=== PATIENT | male | born 1935 | race Caucasian/White ===

== ENCOUNTER 2017-07-08 17:04 | Inpatient (IN) ==
[2017-07-08] MEDS ORDERED: NS 1,000 ML IV ONE ×2 (17:17→19:47)
[2017-07-08] MEDS ORDERED: MORPHINE SULFATE 4mg INJECTION IVP ONE ×2 (17:17→20:28)
[2017-07-08] MEDS: SALINE FLUSH 10ml SYRINGE IVF PRN ×2 (17:25→22:53)
--- OUTSIDE RECORDS SUMMARY | 2017-07-08 17:28 | External Medical Summary | CCD ---
:1935 Author Name ROHIT MONTANO Address [address], [place] [phone] Care Team Providers Name Role Phone LESTER BROWN Attending Physician Unavailable Vital Signs Unknown or Not Available. Allergies Unknown or Not Available. Procedures Unknown or Not Available. History of Immunizations Unknown or Not Available. Problems Unknown or Not Available. Results BASIC METABOLIC - Collect Date/Time: 05/06/2014 13:30 Test Name Code Test Result Test Units Test Ref Range GLUCOSE 105 mg/dL L=70 H=110 BUN 17 mg/dL L=7 H=18 CREATININE 1.60 mg/dL L=0.60 H=1.30 AGE 78 YEARS GFR 44.7 SODIUM 139 mmol/L L=136 H=145 POTASSIUM 4.0 mmol/L L=3.5 H=5.1 CHLORIDE 97 mmol/L L=98 H=107 CO2 32 mmol/L L=21 H=32 CALCIUM 5.9 mg/dL L=8.5 H=10.1 PT/INR - Collect Date/Time: 05/06/2014 13:30 Test Name Code Test Result Test Units Test Ref Range PT 22.8 Secs L=9.6 H=11.2 INR 2.12 L=0.00 H=4.00 Active Medications Unknown or Not Available. Medications Administered During Visit Unknown or Not Available. Encounters Unknown or Not Available. Social History Smoking Status Code Start Date End Date Never smoker [id number] Patient Decision Aids Unknown or Not Available. Discharge Instructions You were admitted to [facility] on 05/06/2014. You were discharged from [facility] on 05/06/2014. Should you have any questions prior to discharge, please contact a member of your healthcare team. If you have left the hospital and have any questions, please contact your primary care physician. Chief Complaint and Reason For Visit Unknown or Not Available. Function Status Unknown or Not Available. Plan of Care Unknown or Not Available. Referral/Transition of Care Unknown or Not Available.
--- OUTSIDE RECORDS SUMMARY | 2017-07-08 17:28 | External Medical Summary | CCD ---
:1935 Author Name MO HAN Address [address], [place] [phone] Care Team Providers Name Role Phone LESTER BROWN Attending Physician Unavailable Vital Signs Unknown or Not Available. Allergies Unknown or Not Available. Procedures Unknown or Not Available. History of Immunizations Unknown or Not Available. Problems Unknown or Not Available. Results PT/INR - Collect Date/Time: 12/28/2015 14:23 Test Name Code Test Result Test Units Test Ref Range PT 27.9 Secs L=9.4 H=11.0 INR 2.80 L=0.00 H=4.00 Active Medications Unknown or Not Available. Medications Administered During Visit Unknown or Not Available. Encounters Encounter Diagnosis Diagnosis Code Start Date Unspecified atrial fibrillation I4891 12/28/2015 Social History Smoking Status Code Start Date End Date Never smoker [id number] Patient Decision Aids Unknown or Not Available. Discharge Instructions You were admitted to [facility] on 12/28/2015 14:11 with a principal diagnosis of Unspecified atrial fibrillation You had the following tests done: PT/ INR You were discharged from [facility] on 12/28/2015 14:11 Should you have any questions prior to discharge, please contact a member of your healthcare team. If you have left the hospital and have any questions, please contact your primary care physician. Chief Complaint and Reason For Visit Chief Complaint Date of Onset LAB Function Status Unknown or Not Available. Plan of Care Unknown or Not Available. Referral/Transition of Care Unknown or Not Available.
--- OUTSIDE RECORDS SUMMARY | 2017-07-08 17:28 | External Medical Summary | CCD ---
:1935 Author Name ROHIT MONTANO Fernando Address [address] [place], [place] [phone] Care Team Providers Name Role Phone ERICH CELESTE Attending Physician Unavailable Vital Signs Unknown or Not Available. Allergies Unknown or Not Available. Procedures Unknown or Not Available. History of Immunizations Unknown or Not Available. Problems Unknown or Not Available. Results Unknown or Not Available. Active Medications Unknown or Not Available. Medications Administered During Visit Unknown or Not Available. Encounters Encounter Diagnosis Diagnosis Code Start Date CHRONIC KIDNEY DISEASE STAGE 5853 06/27/2014 III Social History Smoking Status Code Start Date End Date Never smoker [id number] Patient Decision Aids Unknown or Not Available. Discharge Instructions You were admitted to [facility] on with a principal diagnosis of CHRONIC KIDNEY DISEASE STAGE III. You were discharged from [facility] on 06/27/2014. Should you have any questions prior to discharge, please contact a member of your healthcare team. If you have left the hospital and have any questions, please contact your primary care physician. Chief Complaint and Reason For Visit Chief Complaint Date of Onset US RETRO PERITONEAL COMP Function Status Unknown or Not Available. Plan of Care Unknown or Not Available. Referral/Transition of Care Unknown or Not Available.
--- OUTSIDE RECORDS SUMMARY | 2017-07-08 17:28 | External Medical Summary | CCD ---
:1935 Author Name MO HAN Address [address] [place] [place], [place] [phone] Care Team Providers Name Role Phone LESTER BROWN Attending Physician Unavailable MICHAEL REBOLLAR (Secondary) Physician Unavailable Vital Signs Unknown or Not Available. Allergies Unknown or Not Available. Procedures Unknown or Not Available. History of Immunizations Unknown or Not Available. Problems Unknown or Not Available. Results PT/INR - Collect Date/Time: 10/06/2015 15:22 Test Name Code Test Result Test Units Test Ref Range PT 17.1 Secs L=9.4 H=11.0 INR 1.70 L=0.00 H=4.00 Active Medications Unknown or Not Available. Medications Administered During Visit Unknown or Not Available. Encounters Encounter Diagnosis Diagnosis Code Start Date Unspecified atrial fibrillation I4891 10/06/2015 Social History Smoking Status Code Start Date End Date Never smoker [id number] Patient Decision Aids Unknown or Not Available. Discharge Instructions You were admitted to [facility] on 10/06/2015 15:15 with a principal diagnosis of Unspecified atrial fibrillation You had the following tests done: PT/ INR You were discharged from [facility] on 10/06/2015 15:15 Should you have any questions prior to [...]
--- OUTSIDE RECORDS SUMMARY | 2017-07-08 17:28 | External Medical Summary | CCD ---
:1935 Author Name MO HAN Address [address] [place], [place] [phone] Care Team Providers Name Role Phone LESTER BROWN Attending Physician Unavailable MICHAEL REBOLLAR (Secondary) Physician Unavailable Vital Signs Unknown or Not Available. Allergies Unknown or Not Available. Procedures Unknown or Not Available. History of Immunizations Unknown or Not Available. Problems Unknown or Not Available. Results PT/INR - Collect Date/Time: 11/08/2015 14:58 Test Name Code Test Result Test Units Test Ref Range PT 26.9 Secs L=9.4 H=11.0 INR 2.69 L=0.00 H=4.00 Active Medications Unknown or Not Available. Medications Administered During Visit Unknown or Not Available. Encounters Encounter Diagnosis Diagnosis Code Start Date Unspecified atrial fibrillation I4891 11/08/2015 Social History Smoking Status Code Start Date End Date Never smoker [id number] Patient Decision Aids Unknown or Not Available. Discharge Instructions You were admitted to [facility] on 11/08/2015 14:54 with a principal diagnosis of Unspecified atrial fibrillation You had the following tests done: PT/ INR You were discharged from [facility] on 11/08/2015 14:54 Should you have any questions prior to [...]
--- OUTSIDE RECORDS SUMMARY | 2017-07-08 17:28 | External Medical Summary | CCD ---
:1935 Author Name MO HAN Address [address] [place], [place] [phone] Care Team Providers Name Role Phone LESTER BROWN Attending Physician Unavailable MICHAEL REBOLLAR (Secondary) Physician Unavailable Vital Signs Unknown or Not Available. Allergies Unknown or Not Available. Procedures Unknown or Not Available. History of Immunizations Unknown or Not Available. Problems Unknown or Not Available. Results BASIC METABOLIC - Collect Date/Time: 12/16/2014 11:15 Test Name Code Test Result Test Units Test Ref Range GLUCOSE 109 mg/dL L=70 H=110 BUN 14 mg/dL L=7 H=18 CREATININE 1.40 mg/dL L=0.60 H=1.30 AGE 79 YEARS GFR 52.0 SODIUM 133 mmol/L L=136 H=145 POTASSIUM 4.6 mmol/L L=3.5 H=5.1 CHLORIDE 99 mmol/L L=98 H=107 CO2 29 mmol/L L=21 H=32 CALCIUM 8.8 mg/dL L=8.5 H=10.1 MAGNESIUM - Collect Date/Time: 12/16/2014 11:15 Test Name Code Test Result Test Units Test Ref Range MAGNESIUM 1.8 mg/dL L=1.8 H=2.4 Active Medications Unknown or Not Available. Medications Administered During Visit Unknown or Not Available. Encounters Encounter Diagnosis Diagnosis Code Start Date Essential (primary) hypertension I10 12/16/2014 Social History Smoking Status Code Start Date End Date Never smoker [id number] Patient Decision Aids Unknown or Not Available. Discharge Instructions You were admitted to [facility] on 07/2014 with a principal diagnosis of Essential (primary) hypertension. Should you have any questions prior to [...]
--- OUTSIDE RECORDS SUMMARY | 2017-07-08 17:28 | External Medical Summary | CCD ---
:1935 Author Name HANMO NICHOLS Address [address] [place], [place] [phone] Care Team Providers Name Role Phone LESTER BROWN Attending Physician Unavailable Vital Signs Unknown or Not Available. Allergies Unknown or Not Available. Procedures Unknown or Not Available. History of Immunizations Unknown or Not Available. Problems Unknown or Not Available. Results BASIC METABOLIC - Collect Date/Time: 10/20/2014 11:16 Test Name Code Test Result Test Units Test Ref Range GLUCOSE 142 mg/dL L=70 H=110 BUN 17 mg/dL L=7 H=18 CREATININE 1.60 mg/dL L=0.60 H=1.30 AGE 78 YEARS GFR 44.7 SODIUM 136 mmol/L L=136 H=145 POTASSIUM 4.2 mmol/L L=3.5 H=5.1 CHLORIDE 99 mmol/L L=98 H=107 CO2 32 mmol/L L=21 H=32 CALCIUM 9.0 mg/dL L=8.5 H=10.1 MAGNESIUM - Collect Date/Time: 10/20/2014 11:16 Test Name Code Test Result Test Units Test Ref Range MAGNESIUM 2.0 mg/dL L=1.8 H=2.4 PT/INR - Collect Date/Time: 10/20/2014 11:16 Test Name Code Test Result Test Units Test Ref Range PT 26.5 Secs L=9.2 H=10.8 INR 2.50 L=0.00 H=4.00 Active Medications Unknown or Not Available. Medications Administered During Visit Unknown or Not Available. Encounters Encounter Diagnosis Diagnosis Code Start Date RENAL FAILURE NOS 586 10/20/2014 Social History Smoking Status Code Start Date End Date Never smoker [id number] Patient Decision Aids Unknown or Not Available. Discharge Instructions You were admitted to [facility] on 11/2014 with a principal diagnosis of RENAL FAILURE NOS. You were discharged from [facility] on 10/20/2014. Should you have any questions prior to [...]
--- OUTSIDE RECORDS SUMMARY | 2017-07-08 17:29 | External Medical Summary | CCD ---
:1935 Author Name ROHIT MONTANO Address [address] [place], [place] [phone] Care Team Providers Name Role Phone MICHAEL REBOLLAR Attending Physician Unavailable LESTER BROWNing (Secondary) Physician Unavailable Vital Signs Unknown or Not Available. Allergies Unknown or Not Available. Procedures Unknown or Not Available. History of Immunizations Unknown or Not Available. Problems Unknown or Not Available. Results BASIC METABOLIC - Collect Date/Time: 06/17/2014 11:08 Test Name Code Test Result Test Units Test Ref Range GLUCOSE 113 mg/dL L=70 H=110 BUN 12 mg/dL L=7 H=18 CREATININE 1.50 mg/dL L=0.60 H=1.30 AGE 78 YEARS GFR 48.1 SODIUM 134 mmol/L L=136 H=145 POTASSIUM 5.0 mmol/L L=3.5 H=5.1 CHLORIDE 99 mmol/L L=98 H=107 CO2 27 mmol/L L=21 H=32 CALCIUM 8.8 mg/dL L=8.5 H=10.1 Active Medications Unknown or Not Available. Medications Administered During Visit Unknown or Not Available. Encounters Unknown or Not Available. Social History Smoking Status Code Start Date End Date Never smoker [id number] Patient Decision Aids Unknown or Not Available. Discharge Instructions You were admitted to [facility] on 06/17/2014. Should you have any questions prior to [...]
--- OUTSIDE RECORDS SUMMARY | 2017-07-08 17:29 | External Medical Summary | CCD ---
:1935 Author Name MO HAN Address [address] [place], [place] [phone] Care Team Providers Name Role Phone LESTER BROWN Attending Physician Unavailable MICHAEL REBOLLAR (Secondary) Physician Unavailable Vital Signs Unknown or Not Available. Allergies Unknown or Not Available. Procedures Unknown or Not Available. History of Immunizations Unknown or Not Available. Problems Unknown or Not Available. Results PT/INR - Collect Date/Time: 04/04/2016 14:21 Test Name Code Test Result Test Units Test Ref Range PT 17.7 Secs L=9.4 H=11.0 INR 1.76 L=0.00 H=4.00 Active Medications Unknown or Not Available. Medications Administered During Visit Unknown or Not Available. Encounters Encounter Diagnosis Diagnosis Code Start Date Unspecified atrial fibrillation I4891 04/04/2016 Social History Smoking Status Code Start Date End Date Never smoker [id number] Patient Decision Aids Unknown or Not Available. Discharge Instructions You were admitted to [facility] on 04/04/2016 14:07 with a principal diagnosis of Unspecified atrial fibrillation You had the following tests done: PT/ INR You were discharged from [facility] on 04/09/2016 23:59 Should you have any questions prior to discharge, please contact a member of your healthcare team. If you have left the hospital and have any questions, please contact your primary care physician. Chief Complaint and Reason For Visit Chief Complaint Date of Onset LABS Function Status Unknown or Not Available. Plan of Care Unknown or Not Available. Referral/Transition of Care Unknown or Not Available.
--- OUTSIDE RECORDS SUMMARY | 2017-07-08 17:29 | External Medical Summary | CCD ---
:1935 Author Name MO HAN Address [address], [place] [phone] Care Team Providers Name Role Phone LESTER BROWN Attending Physician Unavailable MICHAEL REBOLLAR (Secondary) Physician Unavailable Vital Signs Unknown or Not Available. Allergies Unknown or Not Available. Procedures Unknown or Not Available. History of Immunizations Unknown or Not Available. Problems Unknown or Not Available. Results MAGNESIUM - Collect Date/Time: 02/21/2015 15:40 Test Name Code Test Result Test Units Test Ref Range MAGNESIUM 1.8 mg/dL L=1.8 H=2.4 RENAL FUNCTION PANEL - Collect Date/Time: 02/21/2015 15:35 Test Name Code Test Result Test Units Test Ref Range GLUCOSE 136 mg/dL L=70 H=110 BUN 21 mg/dL L=7 H=18 CREATININE 1.50 mg/dL L=0.60 H=1.30 AGE 79 YEARS GFR 48.0 SODIUM 135 mmol/L L=136 H=145 POTASSIUM 4.4 mmol/L L=3.5 H=5.1 CHLORIDE 100 mmol/L L=98 H=107 CO2 27 mmol/L L=21 H=32 CALCIUM 9.0 mg/dL L=8.5 H=10.1 ALBUMIN 3.6 g/dL L=3.4 H=5.0 PHOSPHORUS 4.0 mg/dL L=2.5 H=4.9 PROTEIN/CREATININE RATIO - Collect Date/Time: 02/21/2015 15:50 Test Name Code Test Result Test Units Test Ref Range PROTEIN, URINE 8.3 mg/dL L=0.0 H=11.9 CREAT, URINE 80.1 mg/dL PROTEIN/CREAT 0.1 CBC W/ DIFF - Collect Date/Time: 02/21/2015 15:40 Test Name Code Test Result Test Units Test Ref Range WBC 6.6 x10^3 L=4.8 H=10.8 RBC 3.71 x10^6 L=4.70 H=6.10 HEMOGLOBIN 12.9 g/dL L=14.0 H=18.0 HEMATOCRIT 38.4 % L=42.0 H=52.0 MCV 104 fL L=80 H=100 MCH 34.7 pg L=27.0 H=33.0 MCHC 33.6 g/dL L=33.0 H=37.0 RDW 14.4 % L=11.5 H=14.5 PLATELETS 198 x10^3 L=150 H=450 MPV 7.8 fL L=7.8 H=11.0 NEUTROPHILS 63.7 % L=40.0 H=80.0 LYMPHOCYTES 26.0 % L=20.0 H=45.0 MONOCYTES 8.0 % L=0.0 H=10.0 EOSINOPHILS 1.5 % L=0.0 H=5.0 BASOPHILS 0.8 % L=0.0 H=2.0 REFLEX MAN DIFF NO N/A PT/INR - Collect Date/Time: 02/15/2015 11:45 Test Name Code Test Result Test Units Test Ref Range PT 28.1 Secs L=9.2 H=10.8 INR 2.64 L=0.00 H=4.00 Active Medications Unknown or Not Available. Medications Administered During Visit Unknown or Not Available. Encounters Encounter Diagnosis Diagnosis Code Start Date Unspecified atrial fibrillation I4891 02/15/2015 Social History Smoking Status Code Start Date End Date Never smoker [id number] Patient Decision Aids Unknown or Not Available. Discharge Instructions You were admitted to [facility] on 07/2015 with a principal diagnosis of Unspecified atrial fibrillation. Should you have any questions prior to discharge, please contact a member of your healthcare team. If you have left the hospital and have any questions, please contact your primary care physician. Chief Complaint and Reason For Visit Chief Complaint Date of Onset RECURRING LAB Function Status Unknown or Not Available. Plan of Care Unknown or Not Available. Referral/Transition of Care Unknown or Not Available.
--- OUTSIDE RECORDS SUMMARY | 2017-07-08 17:29 | External Medical Summary | CCD ---
:1935 Author Name ROHIT MONTANO Address [address] [place], [place] [phone] Care Team Providers Name Role Phone LESTER BROWN Attending Physician Unavailable MICHAEL REBOLLAR (Secondary) Physician Unavailable Vital Signs Unknown or Not Available. Allergies Unknown or Not Available. Procedures Unknown or Not Available. History of Immunizations Unknown or Not Available. Problems Unknown or Not Available. Results BASIC METABOLIC - Collect Date/Time: 06/09/2014 11:35 Test Name Code Test Result Test Units Test Ref Range GLUCOSE 98 mg/dL L=70 H=110 BUN 9 mg/dL L=7 H=18 CREATININE 1.40 mg/dL L=0.60 H=1.30 AGE 78 YEARS GFR 52.1 SODIUM 137 mmol/L L=136 H=145 POTASSIUM 4.7 mmol/L L=3.5 H=5.1 CHLORIDE 100 mmol/L L=98 H=107 CO2 31 mmol/L L=21 H=32 CALCIUM 9.5 mg/dL L=8.5 H=10.1 MAGNESIUM - Collect Date/Time: 06/09/2014 11:35 Test Name Code Test Result Test Units Test Ref Range MAGNESIUM 1.3 mg/dL L=1.8 H=2.4 PT/INR - Collect Date/Time: 06/09/2014 11:35 Test Name Code Test Result Test Units Test Ref Range PT 29.1 Secs L=9.6 H=11.2 INR 2.69 L=0.00 H=4.00 Active Medications Unknown or Not Available. Medications Administered During Visit Unknown or Not Available. Encounters Unknown or Not Available. Social History Smoking Status Code Start Date End Date Never smoker [id number] Patient Decision Aids Unknown or Not Available. Discharge Instructions You were admitted to [facility] on 06/09/2014. You were discharged from [facility] on 06/09/2014. Should you have any questions prior to [...]
--- OUTSIDE RECORDS SUMMARY | 2017-07-08 17:29 | External Medical Summary | CCD ---
:1935 Author Name MO HAN Address [address] [place], [place] [phone] Care Team Providers Name Role Phone LESTER BROWN Attending Physician Unavailable MICHAEL REBOLLAR (Secondary) Physician Unavailable Vital Signs Unknown or Not Available. Allergies Unknown or Not Available. Procedures Unknown or Not Available. History of Immunizations Unknown or Not Available. Problems Unknown or Not Available. Results PT/INR - Collect Date/Time: 12/20/2015 15:05 Test Name Code Test Result Test Units Test Ref Range PT 32.8 Secs L=9.4 H=11.0 INR 3.30 L=0.00 H=4.00 Active Medications Unknown or Not Available. Medications Administered During Visit Unknown or Not Available. Encounters Encounter Diagnosis Diagnosis Code Start Date Unspecified atrial fibrillation I4891 12/20/2015 Social History Smoking Status Code Start Date End Date Never smoker [id number] Patient Decision Aids Unknown or Not Available. Discharge Instructions You were admitted to [facility] on 12/20/2015 15:00 with a principal diagnosis of Unspecified atrial fibrillation You had the following tests done: PT/ INR You were discharged from [facility] on 12/20/2015 15:00 Should you have any questions prior to [...]
--- OUTSIDE RECORDS SUMMARY | 2017-07-08 17:29 | External Medical Summary | CCD ---
:1935 Author Name MO HAN Address [address] [place], [place] [phone] Care Team Providers Name Role Phone LESTER BROWN Attending Physician Unavailable MICHAEL REBOLLAR (Secondary) Physician Unavailable Vital Signs Unknown or Not Available. Allergies Unknown or Not Available. Procedures Unknown or Not Available. History of Immunizations Unknown or Not Available. Problems Unknown or Not Available. Results PT/INR - Collect Date/Time: 09/06/2015 14:15 Test Name Code Test Result Test Units Test Ref Range PT 34.1 Secs L=9.4 H=11.0 INR 3.42 L=0.00 H=4.00 Active Medications Unknown or Not Available. Medications Administered During Visit Unknown or Not Available. Encounters Encounter Diagnosis Diagnosis Code Start Date Unspecified atrial fibrillation I4891 09/06/2015 Social History Smoking Status Code Start Date End Date Never smoker [id number] Patient Decision Aids Unknown or Not Available. Discharge Instructions You were admitted to [facility] on 09/06/2015 14:10 with a principal diagnosis of Unspecified atrial fibrillation You had the following tests done: PT/ INR You were discharged from [facility] on 09/06/2015 14:10 Should you have any questions prior to [...]
--- OUTSIDE RECORDS SUMMARY | 2017-07-08 17:29 | External Medical Summary | CCD ---
:1935 Author Name MO HAN Address [address], [place] [phone] Care Team Providers Name Role Phone LESTER BROWN Attending Physician Unavailable MICHAEL REBOLLAR (Secondary) Physician Unavailable Vital Signs Unknown or Not Available. Allergies Unknown or Not Available. Procedures Unknown or Not Available. History of Immunizations Unknown or Not Available. Problems Unknown or Not Available. Results PT/INR - Collect Date/Time: 04/27/2015 13:45 Test Name Code Test Result Test Units Test Ref Range PT 37.4 Secs L=9.2 H=10.8 INR 3.46 L=0.00 H=4.00 Active Medications Unknown or Not Available. Medications Administered During Visit Unknown or Not Available. Encounters Encounter Diagnosis Diagnosis Code Start Date Unspecified atrial fibrillation I4891 04/27/2015 Social History Smoking Status Code Start Date End Date Never smoker [id number] Patient Decision Aids Unknown or Not Available. Discharge Instructions You were admitted to [facility] on 04/27/2015 13:35 with a principal diagnosis of Unspecified atrial fibrillation You had the following tests done: PT/ INR You were discharged from [facility] on 04/27/2015 13:35 Should you have any questions prior to [...]
--- OUTSIDE RECORDS SUMMARY | 2017-07-08 17:29 | External Medical Summary | CCD ---
:1935 Author Name MO HAN Address [address] [place], [place] [phone] Care Team Providers Name Role Phone LESTER BROWN Attending Physician Unavailable MICHAEL REBOLLAR (Secondary) Physician Unavailable Vital Signs Unknown or Not Available. Allergies Unknown or Not Available. Procedures Unknown or Not Available. History of Immunizations Unknown or Not Available. Problems Unknown or Not Available. Results PT/INR - Collect Date/Time: 07/05/2015 12:05 Test Name Code Test Result Test Units Test Ref Range PT 30.1 Secs L=9.2 H=10.8 INR 2.82 L=0.00 H=4.00 Active Medications Unknown or Not Available. Medications Administered During Visit Unknown or Not Available. Encounters Encounter Diagnosis Diagnosis Code Start Date Unspecified atrial fibrillation I4891 07/05/2015 Social History Smoking Status Code Start Date End Date Never smoker [id number] Patient Decision Aids Unknown or Not Available. Discharge Instructions You were admitted to [facility] on 07/05/2015 11:59 with a principal diagnosis of Unspecified atrial fibrillation You had the following tests done: PT/ INR You were discharged from [facility] on 07/05/2015 11:59 Should you have any questions prior to [...]
--- OUTSIDE RECORDS SUMMARY | 2017-07-08 17:29 | External Medical Summary | CCD ---
:1935 Author Name MO HAN Address [address] [place], [place] [id number] Care Team Providers Name Role Phone LESTER BROWN Attending Physician Unavailable MICHAEL REBOLLAR (Secondary) Physician Unavailable Vital Signs Unknown or Not Available. Allergies Unknown or Not Available. Procedures Unknown or Not Available. History of Immunizations Unknown or Not Available. Problems Unknown or Not Available. Results BASIC METABOLIC - Collect Date/Time: 01/16/2015 15:06 Test Name Code Test Result Test Units Test Ref Range GLUCOSE 126 mg/dL L=70 H=110 BUN 15 mg/dL L=7 H=18 CREATININE 1.50 mg/dL L=0.60 H=1.30 AGE 79 YEARS GFR 48.0 SODIUM 135 mmol/L L=136 H=145 POTASSIUM 4.4 mmol/L L=3.5 H=5.1 CHLORIDE 98 mmol/L L=98 H=107 CO2 29 mmol/L L=21 H=32 CALCIUM 8.8 mg/dL L=8.5 H=10.1 MAGNESIUM - Collect Date/Time: 01/16/2015 15:06 Test Name Code Test Result Test Units Test Ref Range MAGNESIUM 2.0 mg/dL L=1.8 H=2.4 PT/INR - Collect Date/Time: 01/16/2015 15:06 Test Name Code Test Result Test Units Test Ref Range PT 31.3 Secs L=9.2 H=10.8 INR 2.92 L=0.00 H=4.00 Active Medications Unknown or Not Available. Medications Administered During Visit Unknown or Not Available. Encounters Encounter Diagnosis Diagnosis Code Start Date Unspecified atrial fibrillation I4891 01/16/2015 Social History Smoking Status Code Start Date End Date Never smoker [id number] Patient Decision Aids Unknown or Not Available. Discharge Instructions You were admitted to [facility] on 08/2014 with a principal diagnosis of Unspecified atrial [...]
--- OUTSIDE RECORDS SUMMARY | 2017-07-08 17:29 | External Medical Summary | CCD ---
:1935 Author Name MO HAN Address [address] [place], [place] [phone] Care Team Providers Name Role Phone LESTER BROWN Attending Physician Unavailable Vital Signs Unknown or Not Available. Allergies Unknown or Not Available. Procedures Unknown or Not Available. History of Immunizations Unknown or Not Available. Problems Unknown or Not Available. Results PT/INR - Collect Date/Time: 12/05/2015 14:43 Test Name Code Test Result Test Units Test Ref Range PT 29.1 Secs L=9.4 H=11.0 INR 2.91 L=0.00 H=4.00 Active Medications Unknown or Not Available. Medications Administered During Visit Unknown or Not Available. Encounters Encounter Diagnosis Diagnosis Code Start Date shelter (current) use of [id number] 12/05/2015 anticoagulants Social History Smoking Status Code Start Date End Date Never smoker [id number] Patient Decision Aids Unknown or Not Available. Discharge Instructions You were admitted to [facility] on 12/05/2015 14:35 with a principal diagnosis of Unspecified atrial fibrillation You had the following tests done: PT/ INR You were discharged from [facility] on 12/05/2015 14:35 Should you have any questions prior to [...]
--- OUTSIDE RECORDS SUMMARY | 2017-07-08 17:29 | External Medical Summary | CCD ---
:1935 Author Name ROHIT MONTANO Address [address] [place], [place] [phone] Care Team Providers Name Role Phone ERICH CELESTE Attending Physician Unavailable MICHAEL REBOLLAR (Secondary) Physician Unavailable Vital Signs Unknown or Not Available. Allergies Unknown or Not Available. Procedures Unknown or Not Available. History of Immunizations Unknown or Not Available. Problems Unknown or Not Available. Results MAGNESIUM - Collect Date/Time: 07/25/2014 12:30 Test Name Code Test Result Test Units Test Ref Range MAGNESIUM 1.7 mg/dL L=1.8 H=2.4 RENAL FUNCTION PANEL - Collect Date/Time: 07/25/2014 12:30 Test Name Code Test Result Test Units Test Ref Range GLUCOSE 108 mg/dL L=70 H=110 BUN 13 mg/dL L=7 H=18 CREATININE 1.40 mg/dL L=0.60 H=1.30 AGE 78 YEARS GFR 52.1 SODIUM 137 mmol/L L=136 H=145 POTASSIUM 4.3 mmol/L L=3.5 H=5.1 CHLORIDE 101 mmol/L L=98 H=107 CO2 26 mmol/L L=21 H=32 CALCIUM 9.1 mg/dL L=8.5 H=10.1 ALBUMIN 3.8 g/dL L=3.4 H=5.0 PHOSPHORUS 3.3 mg/dL L=2.5 H=4.9 Active Medications Unknown or Not Available. Medications Administered During Visit Unknown or Not Available. Encounters Encounter Diagnosis Diagnosis Code Start Date CHRONIC KIDNEY DISEASE STAGE 5853 07/25/2014 III Social History Smoking Status Code Start Date End Date Never smoker [id number] Patient Decision Aids Unknown or Not Available. Discharge Instructions You were admitted to [facility] on with a principal diagnosis of CHRONIC KIDNEY DISEASE STAGE III. You were discharged from [facility] on 07/25/2014. Should you have any questions prior to [...]
--- OUTSIDE RECORDS SUMMARY | 2017-07-08 17:29 | External Medical Summary | CCD ---
:1935 Author Name MO HAN Address [address] [place], [place] [phone] Care Team Providers Name Role Phone LESTER BROWN Attending Physician Unavailable Vital Signs Unknown or Not Available. Allergies Unknown or Not Available. Procedures Unknown or Not Available. History of Immunizations Unknown or Not Available. Problems Unknown or Not Available. Results PT/INR - Collect Date/Time: 01/22/2016 14:20 Test Name Code Test Result Test Units Test Ref Range PT 41.8 Secs L=9.4 H=11.0 INR 4.22 L=0.00 H=4.00 PT/INR - Collect Date/Time: 01/11/2016 14:39 Test Name Code Test Result Test Units Test Ref Range PT 34.6 Secs L=9.4 H=11.0 INR 3.47 L=0.00 H=4.00 Active Medications Unknown or Not Available. Medications Administered During Visit Unknown or Not Available. Encounters Encounter Diagnosis Diagnosis Code Start Date Unspecified atrial fibrillation I4891 01/11/2016 Social History Smoking Status Code Start Date End Date Never smoker [id number] Patient Decision Aids Unknown or Not Available. Discharge Instructions You were admitted to [facility] on 01/11/2016 14:34 with a principal diagnosis of Unspecified atrial fibrillation You had the following tests done: PT/ INR PT/INR You were discharged from [facility] Should you have any questions prior to [...]
--- OUTSIDE RECORDS SUMMARY | 2017-07-08 17:29 | External Medical Summary | CCD ---
:1935 Author Name ROHIT MONTANO Fernando Address [address] [place] [id number] Care Team Providers Name Role Phone LESTER BROWN Attending Physician Unavailable Vital Signs Unknown or Not Available. Allergies Unknown or Not Available. Procedures Unknown or Not Available. History of Immunizations Unknown or Not Available. Problems Unknown or Not Available. Results HEPATIC FUNCTION - Collect Date/Time: 03/29/2015 12:50 Test Name Code Test Result Test Units Test Ref Range AST 33 U/L L=15 H=37 ALT 31 U/L L=12 H=78 ALKALINE PHOS 62 U/L L=46 H=116 TOTAL PROTEIN 7.1 g/dL L=6.4 H=8.2 ALBUMIN 3.6 g/dL L=3.4 H=5.0 TOTAL BILI 0.60 mg/dL L=0.00 H=1.00 DIRECT BILI 0.20 mg/dL L=0.00 H=0.30 LIPID PANEL - Collect Date/Time: 03/29/2015 12:50 Test Name Code Test Result Test Units Test Ref Range CHOLESTEROL 116 mg/dL L=0 H=200 TRIGLYCERIDES 98 mg/dL L=30 H=150 HDL 70 mg/dL L=40 H=60 LDL, CALC 26 mg/dL L=0 H=100 VLDL 20 mg/dL L=0 H=40 CHOL/HDL RISK 1.7 RATIO L=0.0 H=5.0 PT FASTING: YES N/A PT/INR - Collect Date/Time: 03/29/2015 12:50 Test Name Code Test Result Test Units Test Ref Range PT 29.2 Secs L=9.2 H=10.8 INR 2.74 L=0.00 H=4.00 Active Medications Unknown or Not Available. Medications Administered During Visit Unknown or Not Available. Encounters Encounter Diagnosis Diagnosis Code Start Date Mixed hyperlipidemia E782 03/29/2015 Social History Smoking Status Code Start Date End Date Never smoker [id number] Patient Decision Aids Unknown or Not Available. Discharge Instructions You were admitted to [facility] on 03/29/2015 12:45 with a principal diagnosis of Mixed hyperlipidemia You had the following tests done: HEPATIC FUNCTION LIPID PANEL PT/INR You were discharged from [facility] on 04/10/2015 23:59 Should you have any questions prior [...]
--- OUTSIDE RECORDS SUMMARY | 2017-07-08 17:29 | External Medical Summary | CCD ---
:1935 Author Name DUSTYROHIT Fernando Address [address] [place], [place] [phone] Care Team Providers Name Role Phone MICHAEL REBOLLAR Attending Physician Unavailable Vital Signs Unknown or [...] Code Start Date End Date Never smoker [id number] Patient Decision Aids Unknown or Not Available. Discharge Instructions You were admitted to [facility] on 05/09/2014. You were discharged from [facility] on 05/09/2014. Should you have any questions prior to [...]
--- OUTSIDE RECORDS SUMMARY | 2017-07-08 17:29 | External Medical Summary | CCD ---
:1935 Author Name MO HAN Address [address] [facility] Unavailable [place], [place] [phone] Care Team Providers Name Role Phone LESTER BROWN Attending Physician Unavailable MICHAEL REBLOLAR (Secondary) Physician Unavailable Vital Signs Unknown or Not Available. Allergies Unknown or Not Available. Procedures Unknown or Not Available. History of Immunizations Unknown or Not Available. Problems Unknown or Not Available. Results PT/INR - Collect Date/Time: 08/04/2015 14:40 Test Name Code Test Result Test Units Test Ref Range PT 25.4 Secs L=9.4 H=11.0 INR 2.54 L=0.00 H=4.00 Active Medications Unknown or Not Available. Medications Administered During Visit Unknown or Not Available. Encounters Encounter Diagnosis Diagnosis Code Start Date Unspecified atrial fibrillation I4891 08/04/2015 Social History Smoking Status Code Start Date End Date Never smoker [id number] Patient Decision Aids Unknown or Not Available. Discharge Instructions You were admitted to [facility] on 08/04/2015 14:30 with a principal diagnosis of Unspecified atrial fibrillation You had the following tests done: PT/ INR You were discharged from [facility] on 08/04/2015 14:30 Should you have any questions prior to [...]
--- OUTSIDE RECORDS SUMMARY | 2017-07-08 17:29 | External Medical Summary | CCD ---
:1935 Author Name MO HAN Address [address] [place], [place] [phone] Care Team Providers Name Role Phone LESTER BROWN Attending Physician Unavailable Vital Signs Unknown or Not Available. Allergies Unknown or Not Available. Procedures Unknown or Not Available. History of Immunizations Unknown or Not Available. Problems Unknown or Not Available. Results PT/INR - Collect Date/Time: 02/20/2016 15:20 Test Name Code Test Result Test Units Test Ref Range PT 23.5 Secs L=9.4 H=11.0 INR 2.34 L=0.00 H=4.00 PT/INR - Collect Date/Time: 02/13/2016 14:36 Test Name Code Test Result Test Units Test Ref Range PT 19.7 Secs L=9.4 H=11.0 INR 1.96 L=0.00 H=4.00 Active Medications Unknown or Not Available. Medications Administered During Visit Unknown or Not Available. Encounters Encounter Diagnosis Diagnosis Code Start Date Unspecified atrial fibrillation I4891 02/13/2016 Social History Smoking Status Code Start Date End Date Never smoker [id number] Patient Decision Aids Unknown or Not Available. Discharge Instructions You were admitted to [facility] on 02/13/2016 14:31 with a principal diagnosis of Unspecified atrial fibrillation You had the following tests done: PT/ INR PT/INR You were discharged from [facility] Should you have any questions prior [...]
--- OUTSIDE RECORDS SUMMARY | 2017-07-08 17:29 | External Medical Summary | CCD ---
:1935 Author Name MO HAN Address [address] [place], [place] [phone] Care Team Providers Name Role Phone LESTER [...] Code Start Date End Date Never smoker [id number] Patient Decision Aids Unknown or Not Available. Discharge Instructions You were admitted to [facility] on 10/06/2015 15:15 with a principal diagnosis of Unspecified atrial fibrillation You had the following tests done: PT/ INR You were discharged from [facility] on 10/06/2015 15:15 Should you have any [...]
--- OUTSIDE RECORDS SUMMARY | 2017-07-08 17:29 | External Medical Summary | CCD ---
:1935 Author Name MO HAN Address [address] [place], [place] [phone] Care Team Providers Name Role Phone LESTER BROWN Attending Physician Unavailable Vital Signs Unknown or Not Available. Allergies Unknown or Not Available. Procedures Unknown or Not Available. History of Immunizations Unknown or Not Available. Problems Unknown or Not Available. Results PT/INR - Collect Date/Time: 11/09/2014 13:15 Test Name Code Test Result Test Units Test Ref Range PT 25.2 Secs L=9.2 H=10.8 INR 2.38 L=0.00 H=4.00 Active Medications Unknown or Not Available. Medications Administered During Visit Unknown or Not Available. Encounters Encounter Diagnosis Diagnosis Code Start Date ATRIAL FIBRILLATION 10537 11/09/2014 Social History Smoking Status Code Start Date End Date Never smoker [id number] Patient Decision Aids Unknown or Not Available. Discharge Instructions You were admitted to [facility] on with a principal diagnosis of ATRIAL FIBRILLATION. You were discharged from [facility] on 11/09/2014. Should you have any questions prior to [...]
--- OUTSIDE RECORDS SUMMARY | 2017-07-08 17:29 | External Medical Summary | CCD ---
:1935 Author Name MO HAN Address [address] [place], [place] [phone] Care Team Providers Name Role Phone ERICH CELESTE Attending Physician Unavailable LESTER BROWNing (Secondary) Physician Unavailable Vital Signs Unknown or Not Available. Allergies Unknown or Not Available. Procedures Unknown or Not Available. History of Immunizations Unknown or Not Available. Problems Unknown or Not Available. Results MAGNESIUM - Collect Date/Time: 06/05/2015 14:18 Test Name Code Test Result Test Units Test Ref Range MAGNESIUM 1.9 mg/dL L=1.8 H=2.4 RENAL FUNCTION PANEL - Collect Date/Time: 06/05/2015 14:18 Test Name Code Test Result Test Units Test Ref Range GLUCOSE 110 mg/dL L=70 H=110 BUN 17 mg/dL L=7 H=18 CREATININE 1.48 mg/dL L=0.60 H=1.30 AGE 79 YEARS GFR 45.8 SODIUM 137 mmol/L L=136 H=145 POTASSIUM 4.5 mmol/L L=3.5 H=5.1 CHLORIDE 99 mmol/L L=98 H=107 CO2 30 mmol/L L=21 H=32 CALCIUM 9.5 mg/dL L=8.5 H=10.1 ALBUMIN 3.8 g/dL L=3.4 H=5.0 PHOSPHORUS 4.1 mg/dL L=2.5 H=4.9 PT/INR - Collect Date/Time: 06/05/2015 14:18 Test Name Code Test Result Test Units Test Ref Range PT 26.4 Secs L=9.2 H=10.8 INR 2.49 L=0.00 H=4.00 Active Medications Unknown or Not Available. Medications Administered During Visit Unknown or Not Available. Encounters Encounter Diagnosis Diagnosis Code Start Date Chronic kidney disease, stage N183 06/05/2015 3 (moderate) Social History Smoking Status Code Start Date End Date Never smoker [id number] Patient Decision Aids Unknown or Not Available. Discharge Instructions You were admitted to [facility] on 06/05/2015 14:09 with a principal diagnosis of Chronic kidney disease, stage 3 (moderate) You had the following tests done: MAGNESIUM PT/INR RENAL FUNCTION PANEL You were discharged from [facility] on 06/05/2015 14:10 Should you have any questions prior [...]
--- OUTSIDE RECORDS SUMMARY | 2017-07-08 17:29 | External Medical Summary | CCD ---
:1935 Author Name MO HAN Address [address] [place], [place] [phone] Care Team Providers Name Role Phone RAJAT SOTELO Attending Physician Unavailable MICHAEL REBOLLAR (Secondary) Physician Unavailable Vital Signs Unknown or Not Available. Allergies Unknown or Not Available. Procedures Unknown or Not Available. History of Immunizations Unknown or Not Available. Problems Unknown or Not Available. Results MAGNESIUM - Collect Date/Time: 11/21/2015 15:27 Test Name Code Test Result Test Units Test Ref Range MAGNESIUM 1.9 mg/dL L=1.8 H=2.4 RENAL FUNCTION PANEL - Collect Date/Time: 11/21/2015 15:27 Test Name Code Test Result Test Units Test Ref Range GLUCOSE 142 mg/dL L=70 H=110 BUN 19 mg/dL L=7 H=18 CREATININE 1.66 mg/dL L=0.60 H=1.30 AGE 80 YEARS GFR 40.1 SODIUM 137 mmol/L L=136 H=145 POTASSIUM 4.4 mmol/L L=3.5 H=5.1 CHLORIDE 100 mmol/L L=98 H=107 CO2 30 mmol/L L=21 H=32 CALCIUM 9.0 mg/dL L=8.5 H=10.1 ALBUMIN 3.5 g/dL L=3.4 H=5.0 PHOSPHORUS 3.9 mg/dL L=2.6 H=4.7 CBC W/ DIFF - Collect Date/Time: 11/21/2015 15:27 Test Name Code Test Result Test Units Test Ref Range WBC 6.2 x10^3 L=4.8 H=10.8 RBC 3.43 x10^6 L=4.70 H=6.10 HEMOGLOBIN 11.9 g/dL L=14.0 H=18.0 HEMATOCRIT 34.7 % L=42.0 H=52.0 MCV 101 fL L=80 H=100 MCH 34.8 pg L=27.0 H=33.0 MCHC 34.5 g/dL L=33.0 H=37.0 RDW 13.6 % L=11.5 H=14.5 PLATELETS 183 x10^3 L=150 H=450 MPV 8.3 fL L=7.8 H=11.0 NEUTROPHILS 64.6 % L=40.0 H=80.0 LYMPHOCYTES 25.7 % L=20.0 H=45.0 MONOCYTES 8.1 % L=0.0 H=10.0 EOSINOPHILS 1.5 % L=0.0 H=5.0 BASOPHILS 0.1 % L=0.0 H=2.0 REFLEX MAN DIFF NO N/A Active Medications Unknown or Not Available. Medications Administered During Visit Unknown or Not Available. Encounters Encounter Diagnosis Diagnosis Code Start Date Chronic kidney disease, stage N183 11/21/2015 3 (moderate) Social History Smoking Status Code Start Date End Date Never smoker [id number] Patient Decision Aids Unknown or Not Available. Discharge Instructions You were admitted to [facility] on 11/21/2015 15:14 with a principal diagnosis of Chronic kidney disease, stage 3 (moderate) You had the following tests done: CBC W/ DIFF MAGNESIUM RENAL FUNCTION PANEL You were discharged from [facility] on 11/21/2015 15:14 Should you have any questions prior to [...]
--- OUTSIDE RECORDS SUMMARY | 2017-07-08 17:29 | External Medical Summary | CCD ---
:1935 Author Name MO HAN Address [address] [place], [place] [phone] Care Team Providers Name Role Phone ERICH [...] Code Start Date End Date Never smoker [id number] Patient Decision Aids Unknown or Not Available. Discharge Instructions You were admitted to [facility] on 06/05/2015 14:09 with a principal diagnosis of Chronic kidney disease, stage 3 (moderate) You had the following tests done: MAGNESIUM PT/INR RENAL FUNCTION PANEL You were discharged from [facility] on 06/05/2015 14:10 Should you have any [...]
--- OUTSIDE RECORDS SUMMARY | 2017-07-08 17:30 | External Medical Summary | Continuity of Care Document ---
:1935 Author Organization [facility] Allergies Active Description Code Type Severity Reaction Onset Reported/ Identified Relationship Clinical to Patient Status Yes Ancef Drug Severe Anaphylax 04/14/2013 Aller is gy Medications Medication Packaging Start Date Stop Route Dosage Sig Date Iron 06/10/2014 325 mg (65 1 (ferrous sulfate) mg iron) (one) by Oral 325 mg (65 mg iron) route daily tablet 06/10/2014 2 mg loperamide 2 mg take 2 (two) tablet by Oral route daily as needed folic 06/10/2014 400 mcg 1 acid 400 mcg tablet (one) by Oral route daily Tablet 06/10/2014 08/10/19 400 mg 1 magnesium oxide 400 15 (one) Tablet mg tablet by Oral route two times per day for 30 days Bystolic 06/10/2014 06/11/19 10 mg 10 mg tablet 15 take 1 (one) by Oral route daily DR REBOLLAR 06/10/2014 20 mg lisinopril 20 mg take 1 (one) tablet by Oral route daily DR REBOLLAR Tumrafy Tablet 06/10/2014 400 mg 1 Ultra 400 mg (1,000 (1,000 mg) (one) by Oral mg) chewable tablet route two times per day 06/10/2014 0.4 mg tamsulosin ER 0.4 mg take 1 (one) capsule,extended by Oral route release [address] REBOLLAR 06/10/2014 0.4 mg Nitrostat 0.4 mg take 1 (one) sublingual tablet by Sublingual route daily as needed DR MENDOSA Travatayelitza 06/10/2014 0.004 1 Z 0.004 % eye % (one) at drops bedtime DR MCKEON Capsule 07/11/2014 07/12/19 0.25 mcg 1 calcitriol 0.25 mcg 15 (one) by Oral capsule route two times per day Coumadin Tablet 10/19/2014 2 mg 2 2 mg tablet (two) Tablet by Oral route EVERY DAY EXCEPT TAKE 5MG DR AMIRANI Tablet 10/24/2014 5 mg amLODIPine 5 mg take 1 (one) tablet Tablet by Oral route daily Tablet 11/29/2015 25 mg diphenhydrAMINE 25 take 2 (two) mg tablet Tablet by Oral route daily as needed Problems Date Dx Attending Type Code Diagnosis Diagnosed By Coded 04/14/2013 Joey SINCLAIR, Final 250.00 DM2/NOS UNCOMP NSU Rodrigo 04/14/2013 Joey SINCLAIR, Final 272.4 HYPERLIPIDEMIA NEC Rodrigo NOS 04/14/2013 Joey SINCLAIR, Final 276.1 HYPOSMOLALITY Rodrigo 04/14/2013 Joey SINCLAIR, Final 285.1 ACUTE POSTHEMOR Rodrigo ANEMIA 04/14/2013 Joey SINCLAIR, Final 401.9 HYPERTENSION NOS Rodrigo 04/14/2013 Joey SINCLAIR, Final 414.01 COR -[place] VESSEL Rodrigo 04/14/2013 Joey SINCLAIR, Final 427.31 ATRIAL FIBRILLATION Rodrigo 04/14/2013 Joey SINCLAIR, Final 511.9 PLEURAL EFFUSION NOS Rodrigo 04/14/2013 Joey SINCLAIR, Final 600.00 PROS HYPERTR S Rodrigo OBST/LUTS 04/14/2013 Joey SINCLAIR, Final 682.3 ARM CELLULITIS Rodrigo 04/14/2013 Joey SINCLAIR, Final 997.1 SURG COMP-HEART Rodrigo 04/14/2013 Joey SINCLAIR, Final 997.39 OTH SURG COMP-RESP Rodrigo 04/14/2013 Joey SINCLAIR, Final 998.11 HEMORRHAGE COMP PX Rodrigo 04/14/2013 Joey SINCLAIR, External E878.2 ABN Rodrigo RXN-ANASTOM/GRAFT 04/14/2013 Joey SINCLAIR, Final V43.64 HIP REPLACEMENT Rodrigo STATUS 04/14/2013 Joey SINCLAIR, Final V58.61 LONG-TERM ANTICOAG Rodrigo USE 11/29/2015 E83.42 Hypomagnesemia RAJAT SOTELO MD 11/29/2015 E83.51 Hypocalcemia RAJAT SOTELO MD 11/29/2015 I12.9 Hypertensive chronic RAJAT SOTELO MD kidney disease with K stage 1 through stage 4 chronic kidney disease, or unspecified chronic kidney disease 11/29/2015 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 11/29/2015 N18.3 Chronic kidney DEEPAK SINCLAIR, RAJAT disease, stage 3 K (moderate) 11/29/2015 N40.1 Benign prostatic DEEPAK SINCLAIR, RAJAT hyperplasia with K lower urinary tract symptoms 05/01/2017 AMIKAYDEN, S E559 Vitamin D RODRIGO deficiency, unspecified 05/01/2017 AMIRANI, S E8342 Hypomagnesemia RODRIGO 05/01/2017 AMIRANI, S I129 Hypertensive chronic RODRIGO kidney disease with stage 1 through stage 4 chronic kidney disease, or unspecified chronic kidney disease 05/01/2017 AMIRANI, S I4891 Unspecified atrial RODRIGO fibrillation 05/01/2017 AMIRANI, P N183 Chronic kidney RODRIGO disease, stage 3 (moderate) 05/20/2017 AMIRANI, P I4891 Unspecified atrial RODRIGO fibrillation 05/20/2017 AMIRANI, P I4891 Unspecified atrial RODRIGO fibrillation 06/04/2017 AMIRANI, P I4891 Unspecified atrial RODRIGO fibrillation Procedures Code Description Performed By Performed On 36.13 AO-KEO Gerard MD, Artis 04/17/2013 BYPASS-3 COR ART 36.15 1 INT ANA-KEO Gerard MD, Artis 04/17/2013 ART BYPASS 37.33 HEART LES Moustapha SINCLAIR, Artis 04/17/2013 EXC/DESTR NEC 39.61 EXTRACORPOREAL Moustapha SINCLAIR, Artis 04/17/2013 CIRCULAT 34.91 THORACENTESIS Moustapha SINCLAIR, Artis 04/20/2013 99.62 HEART Moustapha SINCLAIR, Artis 04/20/2013 COUNTERSHOCK NEC 22235 Office or RAJAT SOTELO MD 11/29/2015 other outpatient visit for the evaluation and management of an established patient, which Results Test Result Range INR PPP - 05/01/17 10:49 PT 42.7 Secs 9.0 - 10.4 INR 4.60 0.00 - 4.00 CBC W/ DIFF - 05/01/17 10:49 CBC W/ DIFF LAB NRG WBC 4.6 x10^3 4.8 - 10.8 RBC 3.86 x10^6 4.70 - 6.10 HEMOGLOBIN 13.0 g/dL 14.0 - 18.0 HEMATOCRIT 39.1 % 42.0 - 52.0 MCV 101 fL 80 - 100 MCH 33.7 pg 27.0 - 33.0 MCHC 33.2 g/dL 33.0 - 37.0 RDW 14.0 % 11.5 - 14.5 PLATELETS 179 x10^3 150 - 450 MPV 10.8 fL 7.8 - 11.0 NEUTROPHILS 63.8 % 40.0 - 80.0 LYMPHOCYTES 26.5 % 20.0 - 45.0 MONOCYTES 6.7 % 0.0 - 10.0 EOSINOPHILS 1.5 % 0.0 - 5.0 BASOPHILS 1.3 % 0.0 - 2.0 IMMATURE GRAN 0.2 % 0.0 - 2.0 NUCLEATED RBC'S 0.0 % 0.0 - 1.0 REFLEX MAN DIFF NO NRG RENAL FUNCTION PANEL - 05/01/17 10:49 RENAL FUNCTION PANEL LAB NRG GLUCOSE 116 mg/dL 70 - 110 BUN 16 mg/dL 7 - 18 CREATININE 1.59 mg/dL 0.60 - 1.30 AGE 81 YEARS NRG GFR 42.0 60.0 - 120 SODIUM 142 mmol/L 136 - 145 POTASSIUM 4.0 mmol/L 3.5 - 5.1 CHLORIDE 103 mmol/L 98 - 107 CO2 28 mmol/L 21 - 32 CALCIUM 9.8 mg/dL 8.5 - 10.1 ALBUMIN 3.4 g/dL 3.4 - 5.0 PHOSPHORUS 3.9 mg/dL 2.6 - 4.7 MAGNESIUM - 05/01/17 10:49 MAGNESIUM 1.6 mg/dL 1.8 - 2.4 URIC ACID - 05/01/17 10:49 URIC ACID 8.2 mg/dL 2.6 - 7.2 VITAMIN D (25-HYDROXY) - 05/01/17 10:49 VIT D (25-OH) 60.3 ng/ml 30.0 - 100 PROTEIN/CREATININE RATIO - 05/01/17 10:59 PROTEIN, URINE 17.2 mg/dL 0.0 - 11.9 CREAT, URINE 199.3 mg/dL NRG PROTEIN/CREAT 0.1 NRG UA AUTO W/ MICRO - 05/01/17 10:59 UA AUTO W/ MICRO LAB NRG COLOR Yellow NORMAL: Yellow APPEARANCE Clear NORMAL: Clear GLUCOSE Negative NORMAL: Negative BILIRUBIN Negative NORMAL: Negative KETONE Trace NORMAL: Negative SPEC GRAVITY 1.020 NORMAL: 1.005-1.030 BLOOD Trace-in NORMAL: Negative PROTEIN Negative NORMAL: Negative PH 6.5 NORMAL: 5.0-8.0 UROBILINOGEN 0.2 NORMAL: Negative NITRITE Negative NORMAL: Negative LEUKOCYTES Negative NORMAL: Negative MICRO RBC 2-5 NORMAL: 0-2 MICRO WBC None Seen NORMAL: 0-2 BACTERIA None Seen NORMAL: None-Trace EPI CELLS 0-5 NORMAL: 0-15 MUCUS None Seen NORMAL: None-Small AMORPHOUS None Seen NORMAL: None Seen YEAST None Seen NORMAL: None Seen CRYSTALS None Seen NORMAL: None Seen CAST None Seen NORMAL: None Seen URINE CULTURE? NO NRG INR PPP - 05/20/17 11:30 PT 20.7 Secs 9.0 - 10.4 INR 2.18 0.00 - 4.00 INR PPP - 06/04/17 15:36 PT 19.7 Secs 9.0 - 10.4 INR 2.07 0.00 - 4.00 INR PPP - 07/03/17 10:59 PT 16.8 Secs 9.0 - 10.4 INR 1.76 0.00 - 4.00 BASIC METABOLIC - 07/03/17 10:59 BASIC METABOLIC LAB NRG GLUCOSE 140 mg/dL 70 - 110 BUN 17 mg/dL 7 - 18 CREATININE 1.48 mg/dL 0.60 - 1.30 AGE 81 YEARS NRG GFR 45.6 60.0 - 120 SODIUM 139 mmol/L 136 - 145 POTASSIUM 4.5 mmol/L 3.5 - 5.1 CHLORIDE 102 mmol/L 98 - 107 CO2 30 mmol/L 21 - 32 CALCIUM 9.3 mg/dL 8.5 - 10.1 LIPID PANEL - 07/03/17 10:59 LIPID PANEL LAB NRG PT FASTING: NO NRG CHOLESTEROL 105 mg/dL 0 - 200 TRIGLYCERIDES 67 mg/dL 30 - 150 HDL 63 mg/dL 40 - 60 LDL, CALC 29 mg/dL 0 - 100 VLDL 13 mg/dL 0 - 40 CHOL/HDL RISK 1.7 RATIO 0.0 - 5.0 HEPATIC FUNCTION - 07/03/17 10:59 HEPATIC FUNCTION LAB NRG AST 26 U/L 15 - 37 ALT 26 U/L 14 - 63 ALKALINE PHOS 60 U/L 46 - 116 TOTAL PROTEIN 6.8 g/dL 6.4 - 8.2 ALBUMIN 3.4 g/dL 3.4 - 5.0 TOTAL BILI 0.60 mg/dL 0.00 - 1.00 DIRECT BILI 0.20 mg/dL 0.00 - 0.30 HGB A1C - 07/03/17 10:59 HGB A1C 6.0 % 4.5 - 6.2 eAG 126 mg/dL NRG Encounters ACCT No. Visit Discharge Status Pt. Type Provider Facility Loc./Unit Complaint Date/Time [id number] 04/14/2013 04/23/2013 DIS Inpatient Amirani [id number] 9 19:06:00 15:05:00 , [facility] [id number] 06/04/2017 06/04/2017 CLS Outpatient AMIRANI, LAB 15:32:00 23:59:59 [facility] [id number] 05/20/2017 05/20/2017 DIS Outpatient AMIRANI, LAB 11:24:00 15:30:00 RODRIGO [id number] 05/01/2017 05/01/2017 CLS Outpatient AMIRANI, LAB 10:40:00 23:59:59 RODRIGO [id number] 07/03/2017 Document 10:50:00 Registrati on [id number] 04/16/2016 ACT Unknown [id number] 10:40:00 [id number] 03/26/2016 ACT Unknown [id number] 09:38:00 [id number] 02/09/2016 ACT Unknown [id number] 09:48:00 [id number] 02/09/2016 ACT Unknown [id number] 09:47:00 [id number] 01/23/2016 ACT Unknown [id number] 08:54:00 [id number] 01/10/2016 ACT Unknown [id number] 12:41:00 [id number] 12/18/2015 ACT Unknown [id number] 14:06:00 [id number] 12/18/2015 ACT Unknown [id number] 14:04:00 [id number] 12/18/2015 ACT Unknown [id number] 13:54:00 [id number] 12/18/2015 ACT Unknown [id number] 13:54:00 [id number] 08/22/2015 ACT Unknown [id number] 07:41:00 [id number] 07/19/2015 ACT Unknown [id number] 08:35:00 [id number] 06/29/2015 ACT Unknown [id number] 14:28:00 [id number] 06/29/2015 ACT Unknown [id number] 10:26:00 [id number] 05/17/2015 ACT Unknown [id number] 11:35:00 [id number] 04/24/2015 ACT Unknown [id number] 07:43:00 [id number] 03/03/2015 ACT Unknown [id number] 12:49:00 [id number] 03/02/2015 ACT Unknown [id number] 18:09:00 [id number] 03/02/2015 ACT Unknown [id number] 18:09:00 [id number] 03/02/2015 ACT Unknown [id number] 18:08:00 [id number] 03/02/2015 ACT Unknown [id number] 17:47:00 [id number] 03/02/2015 ACT Unknown [id number] 17:47:00 [id number] 07/19/2014 ACT Unknown [id number] 08:51:00 [id number] 03/25/2014 ACT Unknown [id number] 08:58:00 [id number] 03/08/2014 ACT Unknown [id number] 07:55:00 [id number] 11/29/2013 ACT Unknown [id number] 14:29:00 [id number] 11/08/2013 ACT Unknown [id number] 11:23:00 [id number] 10/15/2013 ACT Unknown [id number] 12:58:00 [id number] 08/30/2013 ACT Unknown [id number] 09:11:00 [id number] 08/19/2013 ACT Unknown [id number] 08:54:00 [id number] 06/16/2013 ACT Unknown [id number] 09:35:00 [id number] 05/20/2013 ACT Unknown [id number] 12:24:00 [id number] 05/18/2013 ACT Unknown [id number] 10:54:00 [id number] 05/03/2013 ACT Unknown [id number] 10:24:00 [id number] 03/22/2013 ACT Unknown [id number] 11:48:00 [id number] 02/23/2013 ACT Unknown [id number] 10:15:00 [id number] 02/01/2013 ACT Unknown [id number] 08:38:00 [id number] 12/29/2012 ACT Unknown [id number] 11:06:00 [id number] 12/07/2012 ACT Unknown [id number] 10:13:00 [id number] 12/06/2015 Document 01 12:04:06 Registrati on
[2017-07-08] MEDS ORDERED: METOCLOPRAMIDE 10mg/2ml INJECTION IVP ONE (17:34)
[2017-07-08] MEDS ORDERED: FentaNYL 100 MCG/2 ML INJECTION IVP ONE (17:38)
[2017-07-08] MEDS ORDERED: IOHEXOL 300mg/ml 100ml INJECTION ONE (18:03)
[2017-07-08] MEDS ORDERED: SALINE FLUSH 10ml SYRINGE ONE (18:04)
[2017-07-08] MEDS ORDERED: KETOROLAC 30 MG/ML INJECTION IVP ONE (18:08)
[2017-07-08] MEDS ORDERED: KETAMINE 500 MG/10 ML INJECTION IVP ONE (18:11)
--- NOTE | 2017-07-08 18:45 | Emergency Department Report ---
Abdominal Pain HPI - General Chief Complaint: Abdominal Pain Stated Complaint: abd. pain Source: patient Mode of arrival: wheelchair Limitations: no limitations - History of Present Illness HPI narrative: Pt presents with severe abdominal pain that started a couple of hours ago. Pt has a known hernia. He was pushing his in a wheelchair at the doctors office this earlier today when he developed some abd pain which progressively became unbearable. He dnies nausea, vomiting, bowel difficulties, fever, chest pain or SOA. MD complaint: abdominal pain Onset (ago): hour(s) Consistency: constant Location: periumbilical, RUQ Severity: severe Quality: sharp Radiation: none Associated symptoms: denies other symptoms - Related Data Home Medications Medication Instructions Recorded Confirmed Nebivolol HCl [Bystolic] 10 mg PO DAILY #0 02/14/09 07/08/17 Amlodipine [Norvasc] 5 mg PO DAILY 07/08/17 07/08/17 Atorvastatin [Lipitor] 40 mg PO HS 07/08/17 07/08/17 Calcitriol [Rocaltrol] 0.25 mcg PO BID 07/08/17 07/08/17 Lisinopril [Prinivil] 20 mg PO DAILY 07/08/17 07/08/17 Magnesium Oxide [Magnesium] 400 mg PO BID 07/08/17 07/08/17 Tamsulosin [Flomax] 0.4 mg PO HS 07/08/17 07/08/17 Warfarin [Coumadin] 2 mg PO NOON 07/08/17 07/08/17 Allergies Allergy/AdvReac Type Severity Reaction Status Date / Time cefazolin Allergy Unknown ANAPHYLAXIS Verified 07/08/17 17:47 Review of Systems All systems: reviewed and negative except as stated Constitutional: Reports: as per HPI Cardiovascular: Reports: as per HPI Respiratory: Reports: as per HPI Gastrointestinal: Reports: as per HPI Genitourinary: Reports: as per HPI Musculoskeletal: Reports: as per HPI Physical Exam - Limitations Limitations: no limitations - General General appearance: alert, in distress - Normal Exams: Head:: Normocephalic without trauma Chest/Respirations:: Clear all noble, with good airflow, and symmetry bilaterally Cardiovascular:: Regular rate and rhythm, without murmur or gallop, Pulses 2+ all extremities, capillary refill, <2 seconds all extremities Musculoskeletal:: No tenderness, or deformity noted, good range of motion, all extremities Integumentary:: No rashes Neurological:: Patient is alert, and oriented, cranial nerves, motor/sensory/ cerebellar, exams w/o gross deficits, to observation Psychiatric:: Patient exhibits, appropriate attention, emotion and affect Course Vital Signs Temperature 97.7 F 07/08/17 17:10 Pulse Rate 90 07/08/17 17:10 Respiratory Rate 20 07/08/17 17:10 Blood Pressure 137/73 07/08/17 17:10 Pulse Oximetry 94 07/08/17 17:10 Temperature 97.7 F 07/08/17 17:10 Pulse Rate 106 H 07/08/17 18:28 Respiratory Rate 28 H 07/08/17 18:28 Blood Pressure 160/73 H 07/08/17 18:28 Pulse Oximetry 93 07/08/17 18:28 Abdominal Pain - MDM Narrative Medical decision making narrative: PT reports hernia is protruding more so than usual and seems to be the primary source of his pain. Hernia easily reduced back however pt remains in significant pain. Ct performed revealing large ventral hernia with small bowel loops however there is no evidence for strangulation or obstruction. V rad also notes ascites 2/[address] Guerra notified and case and findings discussed. He is concerned pt is not a good surgical candidate and suggests pt stay in ER until pain resolves or be admitted to hospitalist for pain control. Pt is not comfortable with discharge home 2/2 how quickly his pain developed and how difficult it has been to manage. PT prefers admission at this time. Rambo notified and expresses concern regarding elevated Lactate and the amount of pain pt continues to have. His preference is for surgeon to assess at bedside prior to admission. Surgeon notified and states he is comfortable with admission based on current report and verbal discussion. Rambo is willing to accept pt if pt and family understand limitations of this facility surgically at this time as well as opportunity for 2nd opinion at a different facility. Discussed pt current condition, CT and lab findings, prognosis, concerns with staying at this facility as well as possible treatments at another facility with pt and family at length. After multiple questions answered and concerns reviewed family choose to have pt admitted to [facility]. PT expresses desire for pt to be seen by Dr Norman. Dr Ricks notified and will admit. - Differential Diagnosis Differential diagnosis: Likely: abdominal pain, constipation, diverticulitis, gastroenteritis, pancreatitis, small bowel obstruction - Lab Data Attestation: I reviewed the patient's lab results. Result diagrams: 07/09/17 04:36 07/09/17 04:36 Lab Results 07/08/17 07/08/17 Range/Units 17:25 17:26 WBC 12.2 H (4.5-11.0) T/MM3 RBC 3.61 L (4.50-5.90) M/MM3 Hgb 12.5 L (13.5-17.5) GM/DL Hct 37.8 L (41-53) % MCV 104.7 H (80-100) UM3 MCH 34.6 H (26-34) UUG MCHC 33.1 (31-37) GM/DL RDW Std Deviation 51.8 H (36.9-50.2) FL Plt Count 218 (130-400) T/MM3 MPV 10.8 (9.4-12.4) UM3 Immature Gran % (Auto) 0.2 (0.0-0.5) % Neut % (Auto) 74.6 H (33-66) % Lymph % (Auto) 19.7 L (23-45) % Jessamine % (Auto) 4.6 (0-9.0) % Eos % (Auto) 0.6 (0-4) % Baso % (Auto) 0.3 (0-2) % Neut # (Auto) 9.1 H (1.8-7.7) T/MM3 Lymph # (Auto) 2.4 (1-4.8) T/MM3 Jessamine # (Auto) 0.6 (0-0.8) T/MM3 Eos # (Auto) 0.1 (0-0.5) T/MM3 Baso # (Auto) 0.0 (0-0.2) T/MM3 Abs Immat Gran (auto) 0.03 (0.00-0.03) T/MM3 Turbidity < 20 (0-20) Sodium 139 (134-144) MEQ/L Potassium 3.9 (3.6-5) MEQ/L Chloride 98 (98-107) MEQ/L Carbon Dioxide 28 (22-30) MEQ/L Anion Gap 13 (5-15) meq/L BUN 23.0 H (9-20) MG/DL Creatinine 1.2 (0.8-1.5) mg/dL GFR Calculation 58 BUN/Creatinine Ratio 19 (6-26) RATIO Glucose 188 H (75-110) MG/DL Calculated Osmolality 277 (261-280) MOSM/KG Calcium 9.7 (8.4-10.2) MG/DL Total Bilirubin 0.80 (0.20-1.30) MG/DL Icterus Index < 2 (0-7) AST 27 (17-59) U/L ALT 18 (1-50) U/L Alkaline Phosphatase 69 (38-126) U/L Total Protein 7.0 (6.3-8.2) g/dL Albumin 4.2 (3.5-5.0) g/dL Globulin 2.8 (2.4-3.6) G/DL Albumin/Globulin Ratio 1.5 (1.1-2.2) RATIO Specimen Hemolysis < 15 (0-25) - Radiology Data Attestation: I reviewed the patient's radiology results. Disposition Clinical Impression: Abdominal pain Disposition: 02 To OBS [facility] Condition: Stable - Seen By: midlevel
--- NOTE | 2017-07-08 22:14 | History & Physical Report ---
History of Present Illness Date: 07/08/17 Chief complaint: Abdominal pain HPI: 81 y/o male presents to the [facility] ER [facility] with sudden onset of abdominal pain. He was pushing his in her wheel chair when the pain abruptly hit him. He has a known history of a ventral hernia. He came to the ER seeking further treatment. Tonight he has received morphine, fentanyl, ativan, and ketamine. These have helped to provide some relief for his pain. He is still awake and lucid on my interview this evening. A CT of the abdomen was obtained. Per STEVE's report, the CT did show loops of bowel within the hernia but no specific evidence of strangulation. The hernia was manually reduced, but has since popped out again. A lactate was checked, coming back at 3.6. The news content specialist surgeon was called, Dr Escobedo. Labs, CT findings were reviewed with the surgeon. Per EXTENSION DIVISION DIRECTOR's report, Dr. Escobedo reports this patient is a "poor surgical candidate." I was notified thereafter about this patient. I asked that the surgeon be called back, and given the opportunity to directly evaluate this patient at the bedside. This call was reportedly performed, and I was told by the EXTENSION DIVISION DIRECTOR that the surgeon declined and felt comfortable having the patient admitted by the hospitalist team and that he would see the patient in the morning. At this point, I directed the ER team to discuss options with the patient and family, including the possibility of transfer to another facility to seek a second surgical opinion. After much consideration, and weighing risks and benefits, the patient and the family wish to remain at [facility]. I am told they wish to seek the input of Dr Norman in the AM for another opinion. Thus, at the patient and family's request, I am placing this patient into the hospital [facility] primarily for supportive care, symptomatic treatment, and the opportunity for him to visit with Dr Norman in the morning. Review of Systems All systems PM: 10-point ROS was reviewed, no additional remarkable complaints except Past Medical History Medical History: Medical History (Last Updated 07/08/17 @ 22:02 by Jessee Matson MD) Ascites Atrial fibrillation Hypertension Family History: Other (Non contributory due to age) - Social History Smoking status: Former smoker Medications Home Medications Medication Instructions Recorded Confirmed Type Nebivolol HCl [Bystolic] 10 mg PO DAILY #0 02/14/09 07/08/17 History Amlodipine [Norvasc] 5 mg PO DAILY 07/08/17 07/08/17 History Atorvastatin [Lipitor] 40 mg PO HS 07/08/17 07/08/17 History Calcitriol [Rocaltrol] 0.25 mcg PO BID 07/08/17 07/08/17 History Lisinopril [Prinivil] 20 mg PO DAILY 07/08/17 07/08/17 History Magnesium Oxide [Magnesium] 400 mg PO BID 07/08/17 07/08/17 History Tamsulosin [Flomax] 0.4 mg PO HS 07/08/17 07/08/17 History Warfarin [Coumadin] 2 mg PO NOON 07/08/17 07/08/17 History Allergies Allergy/AdvReac Type Severity Reaction Status Date / Time cefazolin Allergy Unknown ANAPHYLAXIS Verified 07/08/17 17:47 Exam Vital Signs: Temperature 97.7 F 07/08/17 17:10 Pulse Rate 98 07/08/17 20:47 Respiratory Rate 16 07/08/17 20:47 Blood Pressure 160/76 H 07/08/17 20:47 Pulse Oximetry 98 07/08/17 20:47 Height/Weight/BMI: Height 1.73 m Weight 70.4 kg - Constitutional Present: no acute distress - Routine HEENT Exam Head: Present: normocephalic, atraumatic ENT: Present: mucous membranes moist - Routine Respiratory Exam Present: CTA bilaterally. Absent: rales, rhonchi, wheezes - Routine Cardiovascular Exam Present: S1, S2 - Routine Abdominal Exam Comments: Nursing abdominal exam done. He is tender to palpation diffusely, but states the tenderness is better than a couple hours ago. His bowel sounds are absent according to nursing report. A large protruding ventral hernia is easily visible. - Routine Extremities Exam Absent: edema - Routine Skin Exam Present: intact. Absent: rash - Routine Neurological Exam Present: alert, oriented X3 Results - Labs CBC & Chem 7: 07/08/17 17:25 07/08/17 17:26 Assessment and Plan Assessment and Plan: Assessment 1. Large ventral hernia with presentation of acute abdominal pain and lactic acidosis 2. Atrial fibrillation on rate control and warfarin. Rate currently controlled and INR is subtherapeutic 3. HTN 4. BPH 5. Reported history of alcoholism Plan Again as mentioned in HPI, I am admitting this patient tonight at request for pain control, symptomatic care and so that he may receive another surgical opinion by Dr Norman in the AM. Will keep this gentleman NPO, provide IV pain and nausea medications prn. Gentle IVFs. Holding home meds. In the morning, daytime rounding hospitalist will need to seek the input of the surgical team. I discussed advanced code blue directives in detail tonight with Bert. He wishes to remain a full code and seek aggressive resuscitation efforts should he experience cardiopulmonary arrest during this hospitalization. - Physician Narrative Narrative: Date: 07/08/17 Time: 2200 Hospital Course Summary Disclaimer: The visit summary below is not to be considered part of the above Progress Note.
[2017-07-08] MEDS ORDERED: ONDANSETRON 4 MG/2 ML INJECTION IVP PRN (22:34)
[2017-07-08 22:37] VITALS: BMI 24.0
[2017-07-08] MEDS: MORPHINE SULFATE 4mg INJECTION IVP PRN (22:54)
[2017-07-08] MEDS: NS 1,000 ML IV SCH (22:55)
[2017-07-09] MEDS: MORPHINE SULFATE 4mg INJECTION IVP PRN ×4 (05:14→14:50)
--- NOTE | 2017-07-09 08:31 | CT Scan Report ---
Indication: abd pain, known hernia PROCEDURE: CT abdomen pelvis w con: Encounter: Initial Comparison: None Technique: Axial CT images were performed through the abdomen and pelvis after the administration of intravenous contrast. Coronal and sagittal two-dimensional reformats. Automated Exposure Control and Iterative Reconstruction dose reducing techniques were utilized. Contrast: Omnipaque 300 89 mL Findings: Airspace consolidation in both lower lobes. Multiple liver cysts. Small volume ascites. Enhancement of the gallbladder wall is surrounding fluid. Heart is enlarged. There is evidence of a perforated duodenal ulcer with free air adjacent to the duodenal bulb and inflammatory changes. Scattered additional foci of free air seen around the liver margin and in the gastrohepatic space. The spleen appears unremarkable with multiple calcified granulomas. The pancreas is normal. The adrenal glands are normal. Bilateral renal calcifications and areas of cortical scarring. No abdominal or pelvic lymphadenopathy. Metallic artifact from bilateral hip replacements limits evaluation of the pelvis. Bladder is grossly normal. Small amount of free fluid in the pelvis. Small bowel containing ventral hernia with a wide mouth and no evidence of acute obstruction or incarceration. Degenerative and postoperative changes in the lumbar spine. Impression: 1. Perforated duodenal ulcer. Recommend emergent surgical consultation. 2. Basilar airspace disease could be reactive due to the abdominal inflammation or represent a pneumonia. There is a preliminary report by [facility]. The free air and probable perforated ulcer is not mentioned in the preliminary report, but was called to the emergency room physician on duty Dr. Alamo at 0823 on July 09, 2017. .
[2017-07-09] MEDS ORDERED: MEROPENEM 500 MG in NS 50 ML IV SCH (08:45)
[2017-07-09] MEDS ORDERED: MEROPENEM 1 GM in NS 100 ML IV SCH ×3 (09:15→10:00)
--- NOTE | 2017-07-09 10:18 | General Surgery Consult Note ---
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 Right hip replacement. Bilateral cataracts. Laminectomy. No Colonoscopy Family History: Mother: Cardiac problems Father: Cardiac problems Brother ([place]): Metastatic pancreatic cancer - Social History Smoking status: Former smoker (quit ~2002) Alcohol intake frequency: 3 or more drinks per day (2-3 "Whiskey drinks") Housing: house [place] Household members: spouse Medications Home Medications Medication Instructions Recorded Confirmed Type Nebivolol HCl [Bystolic] 10 mg PO DAILY #0 02/14/09 07/08/17 History Amlodipine [Norvasc] 5 mg PO DAILY 07/08/17 07/08/17 History Atorvastatin [Lipitor] 40 mg PO HS 07/08/17 07/08/17 History Calcitriol [Rocaltrol] 0.25 mcg PO BID 07/08/17 07/08/17 History Lisinopril [Prinivil] 20 mg PO DAILY 07/08/17 07/08/17 History Magnesium Oxide [Magnesium] 400 mg PO BID 07/08/17 07/08/17 History Tamsulosin [Flomax] 0.4 mg PO HS 07/08/17 07/08/17 History Warfarin [Coumadin] 2 mg PO NOON 07/08/17 07/08/17 History Allergies Allergy/AdvReac Type Severity Reaction Status Date / Time cefazolin Allergy Unknown ANAPHYLAXIS Verified 07/08/17 17:47 Review of Systems 10-point ROS: negative except for HPI and the following: - General General: Present: chills - Cardiovascular Cardiovascular: Present: irregular heart beat, other (CABG x 4) - Hematologic/Lymphatic Hematologic/Lymphatic: Present: use of blood thinners (Coumadin for a-fib) - Vital Signs Last Vital Signs Temp 96.7 F L 07/09/17 07:00 Pulse 78 07/09/17 07:00 Resp 20 07/09/17 07:00 BP 121/74 07/09/17 07:00 Pulse Ox 93 07/09/17 07:00 - Laboratory Result Diagrams: 07/09/17 04:36 07/09/17 04:36
[2017-07-09] MEDS: SALINE FLUSH 10ml SYRINGE IVF PRN (12:02)
[2017-07-09] MEDS: NS 1,000 ML IV SCH (12:09)
--- NOTE | 2017-07-09 12:30 | Consultation ---
DATE OF CONSULTATION 07/09/2017 CONSULTING PHYSICIAN Hill Guerra MD REQUESTING PHYSICIAN Dr. Freeman REASON FOR CONSULTATION Perforated duodenal ulcer and ventral hernia. IMPRESSION 1. Acute perforated duodenal ulcer - this is likely the source of Bert's abdominal pain since his hernia does not seem to be the source of his abdominal pain. 2. Easily reducible ventral hernia measuring 8.7 x 3.6 x 8 cm. 3. Atrial fibrillation - rate controlled. 4. Anticoagulation with Coumadin. RECOMMENDATIONS 1. Given the new information from the overread of Radiology, the patient is going to need operative intervention. His situation is complicated by his advanced age, Coumadin anticoagulation, and atrial fibrillation. I did have a discussion with the patient, his , and his stepson. Given the surgical capabilities of [facility] with CRNAs for anesthesia and limited blood bank, we discussed the potential for transfer to [place] to a larger organization. The patient and family were in agreement with transfer to [facility]. 2. I contacted Dr. Elvis Rollins who was willing to accept the patient in transfer. 3. Continue meropenem. 4. Reverse Coumadin with [address] units [address] FFP per Dr. Rollins's request in anticipation of intervention later today. HISTORY OF PRESENT ILLNESS Bert is an 81-year-old male who presented to the emergency department last night for worsening abdominal pain. He had been pushing his in a wheelchair to a doctor's visit and in turning the chair he felt a sudden onset of sharp abdominal pain. His pain was constant and gradually worsened up to the point that he rated it 12 out of 10 in severity. He presented to the emergency department who evaluated his abdomen including his known ventral hernia. With gentle pressure the nurse practitioner in the emergency department felt that his hernia was able to be reduced. A CT scan of the abdomen was ordered and the preliminary report showed an 8.7 x 3.6 x 8 cm ventral hernia containing multiple bowel loops with no evidence of strangulation and no indication of obstruction. The report had said there was evidence of ascites in multiple areas but no free air. There was also a small nodular liver, possibly cirrhotic. I had been contacted by the emergency department following the preliminary radiology report and the situation was discussed. Given that the hernia had been reduced and the patient was on Coumadin, it was felt that intervention for his hernia would not be undertaken and that there was not evidence of incarceration or strangulation which needed to be dealt with urgently. I had requested the hospitalist admit the patient if he was not comfortable going home following pain medication. He had been given multiple doses of pain medication in the emergency department but it had also been reported that he consumes two whiskey drinks per day. He elected to stay and the telehospitalist service was contacted. They admitted the patient overnight. This morning Dr. Alejandro of Radiology at [facility] did overread the scan and noted free air around the duodenal bulb along with inflammation and felt this was consistent with a perforated duodenal ulcer. The patient was given meropenem given his allergy to cefazolin. The patient on arrival to the floor from the emergency department had received another dose of morphine after transfer to the bed but then slept soundly per the night nurse when I had called for an update about the patient this morning. He continues to have some pain as his morphine doses wear off. His white blood cell count in the emergency department had been 12.2 with 74.6% neutrophils. His white count decreased to 7.9 this morning but included 36% bands. His INR on admission was 1.7 and increase slightly to 1.9 this morning. Lipase had been normal. Lactate in the emergency department was 3.6 but on recheck that evening had decreased to 2.0. It re-elevated to 3.7 this morning. PAST MEDICAL HISTORY, PAST SURGICAL HISTORY, FAMILY HISTORY, SOCIAL HISTORY, ALLERGIES, MEDICATIONS See electronic consultation note. IMAGING Preliminary report and final radiology report from CT the abdomen and pelvis was reviewed. I personally reviewed the images this morning and do agree with Dr. Alejandro's interpretation of inflammation in the area of the duodenum along with trace free air around the duodenal bulb and within the pamela hepatis as well as in the subdiaphragmatic region. LABORATORY DATA See History of Present Illness. PHYSICAL EXAM VITAL SIGNS: The patient has remained afebrile throughout hospital stay. Pulses range from 74 to 81 this morning. His highest pulse was 106 in the emergency department. Other vital signs stable with a current blood pressure of 121/74 and oxygen saturation of 93% on 2 liters nasal cannula. GENERAL: The patient is awake, alert and oriented x 3. He is in mild distress and lying in bed. HEENT: Sclerae clear. Extraocular muscles intact. NECK: Supple with a midline trachea. No lymphadenopathy or thyromegaly are noted. HEART: Irregularly irregular but not tachycardic. LUNGS: Clear to auscultation bilaterally. ABDOMEN: Soft, tender mostly in the right upper quadrant with no guarding or rebound noted. He is nontender in the left abdomen. There is a large ventral hernia superior to the umbilicus which is easily reducible. EXTREMITIES: No clubbing, cyanosis or edema. NEURO: Cranial nerves II-XII are grossly intact. PSYCHIATRIC: Normal mood and affect. MTDD
--- NOTE | 2017-07-09 13:03 | Discharge Summary ---
Discharge Information Date of admission: 07/08/17 21:58 Anticipated date of discharge: 07/09/17 Attending Physician: Jack Freeman MD Primary care physician: [facility] Choose Consults: 07/09/17 10:41 Physician Consult [CONS] Routine Consulting Provider: Hill Guerra Reason For Exam: perf duodenal ulcer, severe abd pain Ordering Provider has Notified Front Desk Monitor: Yes - Laboratory Labs: 07/09/17 04:36 07/09/17 04:36 History of Present Illness HPI: 81 y/o male presents to the [facility] ER [facility] with sudden onset of abdominal pain. He was pushing his in her wheel chair when the pain abruptly hit him. He has a known history of a ventral hernia. He came to the ER seeking further treatment. Tonight he has received morphine, fentanyl, ativan, and ketamine. These have helped to provide some relief for his pain. He is still awake and lucid on my interview this evening. A CT of the abdomen was obtained. Per STEVE's report, the CT did show loops of bowel within the hernia but no specific evidence of strangulation. The hernia was manually reduced, but has since popped out again. A lactate was checked, coming back at 3.6. The research consultant surgeon was called, Dr Escobedo. Labs, CT findings were reviewed with the surgeon. Per SENIOR PL SQL DEVELOPER's report, Dr. Escobedo reports this patient is a "poor surgical candidate." I was notified thereafter about this patient. I asked that the surgeon be called back, and given the opportunity to directly evaluate this patient at the bedside. This call was reportedly performed, and I was told by the SENIOR PL SQL DEVELOPER that the surgeon declined and felt comfortable having the patient admitted by the hospitalist team and that he would see the patient in the morning. At this point, I directed the ER team to discuss options with the patient and family, including the possibility of transfer to another facility to seek a second surgical opinion. After much consideration, and weighing risks and benefits, the patient and the family wish to remain at [facility]. I am told they wish to seek the input of Dr Norman in the AM for another opinion. Thus, at the patient and family's request, I am placing this patient into the hospital [facility] primarily for supportive care, symptomatic treatment, and the opportunity for him to visit with Dr Norman in the morning. Hospital Course This is a general summary of the patient's hospital course. For more details refer to the complete medical record. Pt was admitted by overnight team and there was some concern for hernia strangulation but the CT did not show any strangulation and on exam the hernia was reducible. Surgery instructed pt to be admitted to hospitalist service with the plan on seeing him in the am. But lactic acid was elevated and pt did not improve overnight. In the morning the CT images were over read by in house radiologist and he noted concern for bowel perforation. Surgery was contacted urgently and after their evaluation they recommended pt be transferred to [place] d/t him being on warfarin and being a high risk candidate. Pt was put on Meropenem(d/t allergies) and given iv fluids. accepted pt in [place] and asked 2 units of FFP to be given to pt before transfer. Pt was in discomfort but stable before transfer. Surgery and medical team discussed case with family and they agreed with transfer. Discharge Plan - Med Rec/Dispo Prescriptions: No Action Lisinopril [Prinivil] 20 mg PO DAILY Warfarin [Coumadin] 2 mg PO NOON Atorvastatin [Lipitor] 40 mg PO HS Tamsulosin [Flomax] 0.4 mg PO HS Calcitriol [Rocaltrol] 0.25 mcg PO BID Amlodipine [Norvasc] 5 mg PO DAILY Nebivolol HCl [Bystolic] 10 mg PO DAILY #0 Magnesium Oxide [Magnesium] 400 mg PO BID - Disposition 02 To [facility] Acute Care - Dismissal Complete Discharge Instructions are:: Complete
[2017-07-09 15:27] VITALS: BP 134/64; PULSE 87; TEMP 98.3; O2SAT 92
[2017-07-09 16:09] VITALS: RESP 24
== END 2017-07-09 16:20 | disposition short-term general hospital (02) | DRG 394 ==
LOC: ED 17:04 → EDHOLD 21:58 → MED 22:25
PROVIDERS: ADMIT Hospitalist; ATTEND Internal Medicine